=== PATIENT | female | born 1985 | race African-American/Black ===

== ENCOUNTER → 2019-02-20 | Outpatient (REF) | payer OTHER ==
[2019-02-20 15:19] LABS: BASO % 0.7 % (0.0-1.0); EOS % 0.7 % (0.0-3.0); HEMATOCRIT 44.8 % (36.0-47.0); HEMOGLOBIN 14.8 g/dl (12.0-15.5); LYMPH # 1.8 10^3/uL (1.5-4.5); LYMPH % 40.7 % (24.0-44.0); MEAN CORPUSCULAR HEMOGLOBIN 31.4 pg (27.0-33.0); MEAN CORPUSCULAR VOLUME 94.9 fl (80.0-96.0); MONO # 0.3 10^3/uL (0.0-0.8); MONO % 6.6 % (0.0-5.0); NEUTROPHILS # 2.3 10^3/uL (1.8-7.7); NEUTROPHILS % 51.1 % (36.0-66.0); PLATELET COUNT, AUTOMATED 255 10^3/uL (150-450); RED BLOOD COUNT 4.72 10^6/uL (4.00-5.40); WHITE BLOOD COUNT 4.4 10^3/uL (4.0-10.0)
[2019-02-20 15:35] LABS: ALT/SGPT 25 U/L (12-78); BLOOD UREA NITROGEN 9 MG/DL (7-18); CALCIUM LEVEL 8.9 MG/DL (8.5-10.1); CARBON DIOXIDE LEVEL 28 MEQ/L (21-32); CHLORIDE LEVEL 106 MEQ/L (98-107); GLOMERULAR FILTRATION RATE > 60.0 (>60); GLUCOSE, FASTING 78 MG/DL (70-100); POTASSIUM SERUM 4.3 MEQ/L (3.5-5.1); SODIUM LEVEL 140 MEQ/L (136-145)
[2019-02-20 15:36] LABS: ALBUMIN 4.1 GM/DL (3.2-5.2); BILIRUBIN,TOTAL 0.6 MG/DL (0.2-1.0); RHEUMATOID FACTOR QUANT 14.4 IU/ML (<15.0); THYROID STIMULATING HORMONE 0.806 uIU/ML (0.358-3.740); TOTAL PROTEIN 7.4 GM/DL (6.4-8.2)
[2019-02-20 15:37] LABS: FOLATE > 24.0 NG/ML
[2019-02-20 15:42] LABS: ERYTHROCYTE SEDIMENTATION RATE 2 mm/hr (0-20)
[2019-02-20 15:43] LABS: HEMOGLOBIN A1c 5.4 %
[2019-02-20 16:16] LABS: VITAMIN B12 LEVEL 1006 PG/ML
[2019-02-21 10:21] LABS: DRVV SCREEN 36.1 SEC
[2019-02-21 10:23] LABS: PTT LUPUS TYPE ANTICOAG SCREEN 0.9 (0-1.2)
[2019-02-22 10:04] LABS: ALBUMIN 4.68 GM/DL (3.29-5.55); ALBUMIN % 63.3 % (55.8-66.1); ALPHA-1-GLOBULIN % 3.3 % (2.9-4.9); ALPHA-1-GLOBULINS 0.24 GM/DL (0.17-0.41); ALPHA-2-GLOBULINS % 7.7 % (7.1-11.8); BETA-1-GLOBULINS % 5.5 % (4.7-7.2); BETA-2-GLOBULINS % 4.6 % (3.2-6.5); GAMMA GLOBULIN % 15.6 % (11.1-18.8)
[2019-02-22 10:05] LABS: ALPHA-2-GLOBULINS 0.57 GM/DL (0.42-0.99); BETA-1-GLOBULINS 0.41 GM/DL (0.28-0.60); BETA-2-GLOBULINS 0.34 GM/DL (0.19-0.55); GAMMA GLOBULINS 1.15 GM/DL (0.65-1.58)
[2019-02-23 00:10] LABS: ANCA-ATYPICAL <1:20 titer (Neg:<1:20); ANTI DOUBLE STRAND-DNA AB <1 IU/mL (0-9); ANTINUCLEAR ANTIBODIES DIRECT Negative (Negative); CYTOPLASMIC NEUTROP AB ANCA-C <1:20 titer (Neg:<1:20); Lyme Disease IgG/IgM Antibodie <0.91 ISR (0.00-0.90); Lyme Disease IgM Ab Quantitati <0.80 index (0.00-0.79); PERINUCLEAR AB ANCA-P <1:20 titer (Neg:<1:20); SJOGREN'S ANTI SS-A <0.2 AI (0.0-0.9); SJOGREN'S ANTI SS-B <0.2 AI (0.0-0.9)
[2019-02-24 00:08] LABS: VITAMIN E(GAMMA TOCOPHEROL) 1.5 mg/L (0.7-4.9)
== END ==
LOC: M LABNEURO 09:58
PROVIDERS: ATTEND Psychiatry & Neurology Neurology
DX: G62.9 Polyneuropathy, unspecified (principal)

== ENCOUNTER → 2019-09-29 | Outpatient (CLI) | payer OTHER ==
--- NOTE | 2019-10-02 07:41 | REP ---
Clinical: Seizures . Comparison: None . Findings: The ventricles, sulci, and cisterns are normal in position and appearance. Dominguez-white differentiation is maintained. No acute intracranial hemorrhage, mass/mass effect, pathology or trauma/injury. No evidence for acute infarction. No extra-axial fluid collection. Calvarium is intact. Paranasal sinuses and mastoid air cells are clear. Impression: Normal noncontrast head CT. No evidence for acute intracranial pathology or trauma/injury. Electronically Signed by Luis Chamberlain MD 09/29/2019 04:55 P
== END ==
LOC: M RAD 16:33
PROVIDERS: ATTEND Obstetrics & Gynecology
DX: G40.909 Epilepsy, unspecified, not intractable, without status epilepticus (principal)

== ENCOUNTER 2019-10-17 18:39 | Emergency (ER) | payer OTHER ==
[~2019-10-17] VITALS: Ht 170.2 cm; Wt 88.2 kg
[2019-10-17 18:40] VITALS: BP 144/66
[2019-10-17] MEDS ORDERED: PREN29CH2 PO (19:02)
[2019-10-17 19:12] LABS: BASO % 0.3 % (0.0-1.0); EOS # 0.1 10^3/uL (0.0-0.5); EOS % 1.1 % (0.0-3.0); HEMATOCRIT 38.9 % (36.0-47.0); HEMOGLOBIN 13.2 g/dl (12.0-15.5); LYMPH # 2.6 10^3/uL (1.5-5.0); LYMPH % 25.8 % (24.0-44.0); MEAN CORPUSCULAR HGB CONC 33.9 g/dl (32.0-36.5); MEAN CORPUSCULAR VOLUME 94.4 fl (80.0-96.0); MONO # 0.9 10^3/uL (0.0-0.8); MONO % 8.9 % (0.0-5.0); NEUTROPHILS # 6.3 10^3/uL (1.5-8.5); NEUTROPHILS % 63.1 % (36.0-66.0); PLATELET COUNT, AUTOMATED 233 10^3/uL (150-450); RED BLOOD COUNT 4.12 10^6/uL (4.00-5.40)
[2019-10-17] MEDS ORDERED: ONDANSETRON 4MG/2ML VIAL (J2405) IV ONE (19:45)
[2019-10-17 19:49] LABS: BLOOD UREA NITROGEN 6 MG/DL (7-18); CALCIUM LEVEL 9.3 MG/DL (8.5-10.1); CARBON DIOXIDE LEVEL 25 MEQ/L (21-32); CHLORIDE LEVEL 107 MEQ/L (98-107); CREATININE FOR GFR 0.68 MG/DL (0.55-1.30); GLOMERULAR FILTRATION RATE > 60.0 (>60); GLUCOSE, FASTING 81 MG/DL (70-100); HCG, SERUM QUANTITATIVE 8312 MIU/ML; POTASSIUM SERUM 4.1 MEQ/L (3.5-5.1); SODIUM LEVEL 139 MEQ/L (136-145)
--- NOTE | 2019-10-17 21:00 | REP ---
OB ULTRASOUND: Real-time sonographic evaluation of the gravid uterus is performed utilizing transabdominal technique. There is a single living intrauterine gestation, estimated gestational age 16 weeks 2 days based on LMP, EDC 03/31/2020. Today's measurements indicate appropriate growth. BPD 33 mm = 16 weeks 2 days, 40th percentile HC 129 mm = 16 weeks 4 days, 59th percentile AC 102 mm = 16 weeks 2 days, 48th percentile FL 24 mm = 17 weeks 1 day, 70th percentile HC/AC ratio 1.26, within normal range. Estimated weight 162 grams, 56th percentile. heart rate 157 beats per minute. Placenta is posterior. Edge of the placenta is difficult to visualize due to the lack of amniotic fluid and a uterine contraction. There may be placenta previa, with at least low lying placenta. There is no abruption. Placenta is grade 0. Cervix is closed and measures 3.9 cm in length. There is anhydramnios. Electronically Signed by Keith Dominguez MD 10/18/2019 03:44 P
== END 2019-10-17 20:11 | disposition admitted as inpatient to this hospital (09) ==
LOC: M ED 18:39
DX: O42.912 Preterm premature rupture of membranes, unspecified as to length of time between rupture and onset of labor, second trimester (principal); Z3A.16 16 weeks gestation of pregnancy

== ENCOUNTER 2019-10-17 20:17 | Outpatient (CLI) | payer OTHER ==
[~2019-10-17] VITALS: Ht 170.2 cm; Wt 90.0 kg
[~2019-10-17 20:17] MED LIST: PREN29CH2 PO
[2019-10-17] MEDS ORDERED: PROMETHAZINE INJ 25 MG/ML VIAL (J2550) IV PRN (21:00)
[2019-10-17] MEDS ORDERED: BUTORPHANOL 2 MG/ML INJ (J0595) IV PRN (21:00)
--- NOTE | 2019-10-17 21:26 | HPEPDOC ---
Obstetrical History & Physical General Date of Admission 17Oct2019 History of Present Illness 34 yo at 16+2 weeks gestation by LMP of [id number] c/w 10+0 week US on 28Aug2019 presented to the ER this evening after experiencing a large amount of leakage of fluid starting at ~1830 that has been continuous. She also endorses occasional cramping but nothing severe. She denies any bleeding. She also denies any fevers/chills, SOB, chest pain, dysuria, or n/v. She had an US down in the ER which demonstrated virtually no amniotic fluid but a viable IUP with a FHR of 157 bpm. Chief Complaint: LOF, pre-term Information Provided By: Patient Age: 34 : 10 Term: 4 Pre-term: 0 Abortions: 5 Livin Care Care: Good Care Dating Final EDC: March 31, 2020 Final EDC for Daily Update: March 31, 2020 Final EDC by: LMP (sure LMP of [id number]) LMP: Jun 25, 2019 1st Trimester Date: Aug 28, 2019 (10+0 wee US on 28Aug2019 c/w LMP dating) Antepartum Course Diagnos(e)s Grand Multiparity History of PPH in three prior deliveries Hx of seizure of in [address] head did not reveal concerning findings and BP was normal. Low concern for Pre E, though unclear story Overweight Past Medical History Past Obstetrical History : Past Obstetrical History: Multigravida ( X4, EAB X3 via D+C, SAB X2) Complications: Yes (History of PPH and seizure like episode after one delivery) HOME OFFICE REPRESENTATIVE History: No pertinent history Past Medical History Medical History Seizure like episode after delivery in 2009. Neurology workup unrevealing. Overweight. Surgical History: Dilatation and Curettage (D+C X3, bartholin's cyst excision?) Family History Significant Family History: No pertinent family hx Social History Marital Status: Family situation: Spouse/partner deployed Psychosocial History: No pertinent psych hx * Smoker: non-smoker Alcohol: Denies Drugs: denies Imunizations Tdap status: needs Influenza Status: needs Allergies Coded Allergies: No Known Allergies (Unverified , 10/17/19) Medications Scheduled No115/Iron/Folic Acid ( 19 Chewable Tablet) 1 Each Tab.chew, 1 TAB PO DAILY Physical Examination Physical Examination Chaperoned by L&D RN GENERAL: Alert and oriented times three. ABDOMEN: Gravid and non-tender to touch. No fundal tenderness. EXTREMITIES: No edema. PELVIC: Wet external genitalia. Speculum inserted into the vagina. Pooling of a large amount of clear fluid in the vagina. Positive nitrazine and positive ferning. Cervix closed to visual exam. Speculum removed. Laboratory Data Urine Culture: No Growth Pertinent Laboratoy Data Blood Type: O- RBC Antibody Screen: Negative HIV: Negative Hepatitis B: Negative Hepatitis C: Unknown Rapid Plasma Reagin: Nonreactive Rubella: Immune Varicella: Nonreactive Chlamydia/Gonorrhea: Negative Group B Streptococcus: Unknown Quad Screen Test: Unknown Cystic Fibrosis: Unknown Other Ultrasounds Formal US on 17Oct2019 There is a single living intrauterine gestation, estimated gestational age 16 weeks 2 days based on LMP, EDC 03/31/2020. Today's measurements indicate appropriate growth. BPD 33 mm = 16 weeks 2 days, 40th percentile HC 129 mm = 16 weeks 4 days, 59th percentile AC 102 mm = 16 weeks 2 days, 48th percentile FL 24 mm = 17 weeks 1 day, 70th percentile HC/AC ratio 1.26, within normal range. Estimated weight 162 grams, 56th percentile. heart rate 157 beats per minute. Placenta is posterior. Edge of the placenta is difficult to visualize due to the lack of amniotic fluid and a uterine contraction. There may be placenta previa, with at least low lying placenta. There is no abruption. Placenta is grade 0. Cervix is closed and measures 3.9 cm in length. There is anhydramnios. Assessment Heart Rate (FHR): 157 Tocometer Contractions: No Assessment/Plan Assessment 34 yo at 16+2 weeks gestation presented with previable, premature rupture of membranes. Plan Fetus still alive with documented heartbeat on formal US. Membrane rupture confirmed on exam and there is anhydramnios on US. Cervix closed on US and measured >3.5cm. Patient currently not in labor nor exhibiting any signs/symptoms of infection. I discussed the extremely poor prognosis of membrane rupture for Ms. Jaquez's fetus at this gestational age. I specifically mentioned the extremely high likelihood of her fetus not surviving, either pre or post delivery. She conveyed understanding. Given this poor prognosis, I offered her referral to a civilian facility for either D+E or IOL. The does NOT allow for termination in fetuses with a heartbeat unless the mother's life is threatened, which at this time is not. Ms. Jaquez declined this referral and desires to proceed with expectant management for as long as possible. Formal US demonstrated possible placenta previa, though this isn't definite. She currently has no bleeding. If fetus dies, and delivery becomes indicated (and allowed by federal law) IOL or D+E can either be safely accomplished at this gestational age according to most available data, though there may be an increased risk of the need for transfusion if fetus remains alive before delivery. However, if at any point Ms. Jaquez develops severe bleeding that is life threatening, she would require immediate delivery regardless of heartbeat status. Plan for inpatient observation at least overnight and ultimate expectant management per Ms. Jaquez's wishes. Will repeat CBC in the AM and monitor for signs/symptoms of infection. If concern for the development of maternal infection occurs, will move towards delivery. Will repeat US tomorrow as well. IV analgesia per patient request, and epidural analgesia if desired if she progresses into labor. Will order type and cross and a 2nd IV line due to her hemorrhage risk. All patient questions answered and Ms. Jaquez appears to understand the situation well. DO MARISELA Reyes CHRISTOPHER J. DO Oct 17, 2019 21:26
[2019-10-17 22:57] VITALS: BP 113/52
[2019-10-18 06:25] VITALS: BP 104/56
[2019-10-18 06:30] LABS: HEMATOCRIT 38.4 % (36.0-47.0); HEMOGLOBIN 12.8 g/dl (12.0-15.5); MEAN CORPUSCULAR HGB CONC 33.3 g/dl (32.0-36.5); PLATELET COUNT, AUTOMATED 195 10^3/uL (150-450); WHITE BLOOD COUNT 7.8 10^3/uL (4.0-10.0)
[2019-10-18 06:42] VITALS: BP 104/56
--- NOTE | 2019-10-18 10:01 | REP ---
LIMITED TRANSABDOMINAL AND TRANSLABIAL ULTRASOUND PERFORMED TO EVALUATE PLACENTAL LOCATION: There is a single living intrauterine gestation. The estimated gestational age is 16 weeks 3 days, EDC 03/31/2020. Cervix is closed and measures 3.9 cm in length. heart rate is 141 beats per minute. position is vertex. Placenta is posterior. Translabial images show no evidence of placenta previa. The inferior edge of the placenta appears to be approximately 1.6 cm from the internal cervical os. Anhydramnios is again noted. Electronically Signed by Keith Dominguez MD 10/18/2019 03:49 P
[2019-10-18 11:08] VITALS: BP 111/67
--- NOTE | 2019-10-19 13:14 | DSES ---
DATE OF ADMISSION: 10/17/2019 DATE OF DISCHARGE: 10/18/2019 This lady is a 34-year-old 10, para 4, abortio 5, who is at 16 weeks and 3 days with a last menstrual period (LMP) of 06/25/2019 and having an early ultrasound. She presented to the emergency room (ER) with ruptured membranes. Had an ultrasound, which confirmed spontaneous rupture of membranes with a heart at 16 weeks and 3 days. She has no contractions or vaginal bleeding. She was kept overnight for evaluation, and a repeat ultrasound was performed this morning and indicated that she has a live intrauterine (IUP) gestational 16.3. Estimated date of confinement (EDC) of 03/31/2020. Cervix is 3.9. heart is 141. She does not have a placenta previa. The placenta appears to be 1.6 cm from the internal os and again confirms that she has no amniotic fluid. Her hemoglobin is 12.8, hematocrit 38.4, platelets are 195. Her white count is 7.8. Her vital signs indicate she is afebrile with her highest temperature is 97.8, blood pressure is 111/67, pulse is 90, respirations are 16. We discussed with her the fact that she is still draining clear liquor. She is afebrile. We are unable to move forward with the plan of care because the heart is present. Options available to her are she could go to [place] for a dilatation evacuation if she is so inclined, or she can await spontaneous demise and/or fever. The patient has elected to wait; and so, instructions given were if she is cramping and bleeding with contractions to return immediately, taking her temperature every 6 hours while she is awake and if it is above 104, she is to return immediately. If she has foul discharge or lochia, she is to return immediately. She does have an appointment to see [facility] on Wednesday for heart evaluation. At this time, decision will be made regarding further ongoing plans. Both she and were available for discussion. We had a 40-minute discussion with the patient and asking appropriate questions. They expressed understanding of the plan of care. The patient was discharged with strict instructions as given plus taking her temperature. 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 The patient was discharged undelivered to followup in the office.
== END 2019-10-18 12:20 | disposition home or self-care (01) ==
LOC: M LDO 20:17 → M LDI 21:15 → UNDOADMIN 21:15 → M LDO 10-18 12:20
PROVIDERS: ATTEND Obstetrics & Gynecology
DX: O42.912 Preterm premature rupture of membranes, unspecified as to length of time between rupture and onset of labor, second trimester (principal); Z3A.16 16 weeks gestation of pregnancy
CPT/HCPCS: 36415; 76811; 76815; 80048; 84702; 85025; 85027; 86850; 86900; 86901; 86920; 96374; 99283; G0463; J2405

== ENCOUNTER 2019-10-20 11:49 | Emergency (ER) | payer OTHER ==
[2019-10-20] MEDS ORDERED: ACETAMINOPHEN 500 MG TAB PO ONE (12:30)
[2019-10-20 12:37] LABS: BASO % 0.3 % (0.0-1.0); EOS # 0.1 10^3/uL (0.0-0.5); EOS % 0.7 % (0.0-3.0); HEMATOCRIT 40.7 % (36.0-47.0); HEMOGLOBIN 13.3 g/dl (12.0-15.5); LYMPH # 1.9 10^3/uL (1.5-5.0); LYMPH % 20.6 % (24.0-44.0); MEAN CORPUSCULAR HGB CONC 32.7 g/dl (32.0-36.5); MEAN CORPUSCULAR VOLUME 98.1 fl (80.0-96.0); MONO # 0.7 10^3/uL (0.0-0.8); NEUTROPHILS # 6.3 10^3/uL (1.5-8.5); NEUTROPHILS % 69.7 % (36.0-66.0); PLATELET COUNT, AUTOMATED 222 10^3/uL (150-450); RED BLOOD COUNT 4.15 10^6/uL (4.00-5.40)
--- NOTE | 2019-10-20 12:56 | REP ---
Obstetric sonography: History: 16 weeks gestation leaking brown fluid. Comparison study October 18, 2019. Prior study showed anhydramnios and a low posterior placenta. Findings: A living single intrauterine gestation is seen. There is no observable amniotic fluid as previously noted. heart rate is recorded during the examination at 168 beats per minute. A low-lying posterior placenta is again identified. Breech lie. Translabial scanning was performed and there is no measurable cervix. Electronically Signed by Yonathan Delarosa MD 10/20/2019 12:47 P
[2019-10-20 13:22] LABS: BLOOD UREA NITROGEN 6 MG/DL (7-18); CALCIUM LEVEL 9.5 MG/DL (8.5-10.1); CARBON DIOXIDE LEVEL 23 MEQ/L (21-32); CHLORIDE LEVEL 109 MEQ/L (98-107); CREATININE FOR GFR 0.68 MG/DL (0.55-1.30); GLOMERULAR FILTRATION RATE > 60.0 (>60); GLUCOSE, FASTING 79 MG/DL (70-100); HCG, SERUM QUANTITATIVE 11268 MIU/ML; POTASSIUM SERUM 3.8 MEQ/L (3.5-5.1); SODIUM LEVEL 139 MEQ/L (136-145)
[2019-10-20] MEDS ORDERED: RHOGAM 300 MCG (1500 IU) INJ (J2790) IM ONE (16:00)
--- NOTE | 2019-10-20 16:29 | ED PDOC ---
Post-Departure Follow-Up [place] case report number [id number] emergency number to call [phone] spoke with Radha White who is processing the report VANESSA VILLELA PA-C Oct 20, 2019 16:29
[2019-10-20 16:36] VITALS: BP 125/65
--- NOTE | 2019-10-20 19:48 | IPNPDOC ---
Text Note Date of Service The patient was seen on 10/20/19. NOTE OB Consultation Note Summer is a 34yo with SIUP at 16w5d by lmp c/w early u/s with known PPROM at 16wk presenting to ER today with cramping/abdominal discomfort. She was previously found to have PPROM on 19Nov and admitted for observation/pain control overnight, but she did not progress into labor and desired to go home for expectant management with strict return precautions given. Diagnosis was made based on positive nitrazine and ferning as well as anyhydramnios on ultrasound with +FCA, cervical length at that time was 3.9cm. She notes she wasn't sure what to expect for when delivery is imminent, and she came in today thinking she may be about to deliver. She denies fevers/chills. Small vaginal spotting but no overt bleeding. History: Ob hx: x4, EAB via D&C x3, sab x2. PPH x3. 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 Comparison study October 18, 2019. Prior study showed anhydramnios and a low posterior placenta. Findings: A living single intrauterine gestation is seen. There is no observable amniotic fluid as previously noted. heart rate is recorded during the examination at 168 beats per minute. A low-lying posterior placenta is again identified. Breech lie. Translabial scanning was performed and there is no measurable cervix. Electronically Signed by Yonathan Delarosa MD 10/20/2019 12:47 P Assessment: Summer is a 34yo with SIUP at 16w5d by lmp c/w early u/s with known PPROM at 16wk having slow cervical change from 3.9cm length to no measurable cervix, but cervix still closed based on speculum exam performed by ER physician assistant store manager trainee today. There is still continued cardiac activity and anhydramnios by ultrasound today. No evidence of infection based on stable WBC count, afebrile, absence of foul smelling discharge and abdominal pain. She is hemodynamically stable with no significant bleeding. Plan: -patient desires to go home for continued expectant management (hospital admission was offered for observation/pain control, but patient declines) -I recommended patient receive Rhogam today based on scant spotting in light of maternal O neg blood type -Discussed with patient at length prognosis and expectations. She understands that in light of continued cardiac activity, we cannot proceed with augm entation of labor/IOL based on government regulations, and she is accepting of this. She understands that when she inevitably proceeds into labor, she needs to present to the hospital. She also understands that if she develops signs of infection such as fevers/chills, foul smelling vaginal discharge, abdominal(uterine) pain- she needs to present to the hospital. I confirmed that she has the phone number to contact the on-call physician if needed. -If at any point there is intrauterine demise, we could proceed with medical treatment. -I asked that social work assist with sending [employer] message for who is deployed to [facility]. MY RECOMMENDATION IS THAT RETURN HOME to assist patient given the potential medical complications related to her condition (potential for infection/sepsis as well as hemorrhage, etc). [employer] case report was filed: number [id number]. Phone number [phone]. Report filed by Radha White. -Return precautions discussed at length MD ANA Handy Fishbone I+O Kadie PEREZ I+O Laboratory Tests 10/20/19 11:55 Vital Signs Date Time Temp Pulse Resp B/P (MAP) Pulse Ox O2 Delivery O2 Flow Rate FiO2 10/20/19 16:36 96.2 82 18 125/65 (85) 100 Room Air Liliane Garay MD Oct 20, 2019 19:35
== END 2019-10-20 16:38 | disposition home or self-care (01) ==
LOC: M ED 11:49
DX: O42.112 Preterm premature rupture of membranes, onset of labor more than 24 hours following rupture, second trimester (principal); Z3A.16 16 weeks gestation of pregnancy; Z87.59 Personal history of other complications of pregnancy, childbirth and the puerperium; Z87.448 Personal history of other diseases of urinary system; Z79.899 Other long term (current) drug therapy
CPT/HCPCS: 76815; 80048; 81001; 84702; 85025; 86850; 86900; 86901; 87210; 96372; 99283; J2790

== ENCOUNTER 2019-10-23 07:05 | Inpatient (IN) | payer OTHER ==
[~2019-10-23] VITALS: Ht 170.2 cm; Wt 89.0 kg
[2019-10-23] VITALS (9 sets, daily range): BP systolic 103–130; BP diastolic 57–80
[2019-10-23] MEDS ORDERED: LACTATED RINGER'S 1000 ML IV STA (07:51)
[2019-10-23] MEDS ORDERED: LR 1,000 ML IV SCH ×2 (07:51→14:45)
--- NOTE | 2019-10-23 07:55 | HPEPDOC ---
Obstetrical History & Physical General Date of Admission Oct 23, 2019 at 07:05 History of Present Illness 34 yo at 17+2 weeks gestation with known previable premature rupture of membranes presented to L&D in second stage labor and delivered her shortly after arrival. See delivery note for details. Chief Complaint: Rupture of membranes Information Provided By: Patient Age: 34 : 10 Term: 4 Pre-term: 0 Abortions: 5 Livin Care Care: Good Care Dating Final EDC: March 31, 2020 Final EDC for Daily Update: March 31, 2020 Antepartum Course Diagnos(e)s Grand multiparity Apparent seisure after last though workup was not revealing Overweight RH negative (received rhoam on 20Oct2019) Past Medical History Past Obstetrical History : Past Obstetrical History: Multigravida (Term X4, EAB X3 via D+C, SAB X2) NUT GRINDER History: Spontaneous , Theraputic Past Medical History Medical History Overweight Seizure episode after last delivery? Surgical History: Dilatation and Curettage (D+C X3) Family History Significant Family History: No pertinent family hx Social History Marital Status: Family situation: Spouse/partner deployed Psychosocial History: No pertinent psych hx * Smoker: non-smoker Alcohol: Denies Imunizations Tdap status: needs Influenza Status: needs Allergies Coded Allergies: No Known Allergies (Unverified , 10/17/19) Medications Scheduled No115/Iron/Folic Acid ( 19 Chewable Tablet) 1 Each Tab.chew, 1 TAB PO DAILY Physical Examination Physical Examination Chaperoned by L&D RN GENERAL: Alert and oriented times three. ABDOMEN: Gravid and non-tender to touch. EXTREMITIES: No edema. PELVIC: Feet of fetus hanging out of vagina upon arrival to L&D Laboratory Data Urine Culture: No Growth Pertinent Laboratoy Data Blood Type: O- RBC Antibody Screen: Negative HIV: Negative Hepatitis B: Negative Hepatitis C: Unknown Rapid Plasma Reagin: Nonreactive Rubella: Immune Varicella: Nonreactive Chlamydia/Gonorrhea: Negative Group B Streptococcus: Unknown Quad Screen Test: Unknown Cystic Fibrosis: Unknown Other Ultrasounds Ultrasounds on 17Oct2019 and 20Oct2019 demonstrated viable fetus with anhydramnios. Steroid Therapy Steroid Therapy: No Vaginal Examination Dilation: 5 cm Effacement: 90% Station: +5 Cervical Consistency: Soft Cervical Position: Anterior Presentation: Breech presentation Tocometer Contractions: Yes Frequency: irregular Assessment/Plan Assessment 34 yo at 17+1 weeks gestation presented to L&D in 2nd stage of labor and delivered her stillborn fetus. Plan Fetus delivered. Placental still in place. IV fluids. Type and screen. PRN pain and nausea medication. Cytotec 1000mcg placed rectally to help facilitate passage of the placenta. I discussed with Summer that if her placenta doesn't deliver she may require dilation and curettage. She has remained stable after delivery of her fetus with minimal bleeding. Report given to oncoming embroidery specialist Dr. Gregg. All patient questions answered. DO MARISELA Reyes CHRISTOPHER J. DO Oct 23, 2019 07:55
[2019-10-23] MEDS ORDERED: ONDANSETRON 4MG/2ML VIAL (J2405) IV PRN ×2 (08:00→14:45)
[2019-10-23] MEDS ORDERED: BUTORPHANOL 2 MG/ML INJ (J0595) IV PRN (08:00)
--- NOTE | 2019-10-23 08:16 | DNPDOC ---
[facility] Delivery Note Delivery Note DATE OF DELIVERY: 23Oct2019 PREDELIVERY DIAGNOSIS: 17+1 weeks gestation and previable premature rupture of membranes and then labor POST DELIVERY DIAGNOSIS: Stillborn delivery (, i.e, <20 weeks gestation) PROCEDURE: Spontaneous vaginal delivery MUTUAL FUND SALES AGENT: Dr. York ANESTHESIA: None ESTIMATED BLOOD LOSS: 20 mL. FINDINGS: Male infant, no gross anatomic abnormalities. Placenta still in place. DELIVERY SUMMARY: Summer is a 34 yo at 17+1 weeks gestation being followed closely with known previable, premature rupture of membranes. She presented to L&D in labor with the legs of her fetus protruding from her vagina. She was taken to a delivery room and placed in the lithotomy position. She had an uncontrollable urge to push. Over three sets of pushes of her stillborn fetus delivered in footling breech position. Legs delivered, followed by shoulders, arms, and head with gentle traction and without difficulty. Fetus had no heartbeat or signs of life after delivery. The umbilical cord was clamped and cut. The fetus was inspected and found to have no gross anatomic abnormalities. Fetus was male. Clamp was left on umbilical cord protruding from vagina. Placenta did not deliver spontaneously. 1000mcg MA cytotec was placed. EBL with delivery of fetus was 20ml. Fetus was then wrapped in towels and placed on delivery table. There was no bleeding or hemorrhage with the placenta still in place. Ms. Jaquez was stable, though grieving appropriately when I left the room. L&D RN providing emotional support. Report given to oncoming pump technician Dr. Gregg. DO MARISELA Reyes CHRISTOPHER J. DO Oct 23, 2019 08:16
[2019-10-23 09:03] LABS: HEMATOCRIT 41.8 % (36.0-47.0); HEMOGLOBIN 13.9 g/dl (12.0-15.5); MEAN CORPUSCULAR HEMOGLOBIN 31.9 pg (27.0-33.0); MEAN CORPUSCULAR HGB CONC 33.3 g/dl (32.0-36.5); MEAN CORPUSCULAR VOLUME 95.9 fl (80.0-96.0); PLATELET COUNT, AUTOMATED 221 10^3/uL (150-450); RED BLOOD COUNT 4.36 10^6/uL (4.00-5.40); WHITE BLOOD COUNT 7.3 10^3/uL (4.0-10.0)
[2019-10-23] MEDS ORDERED: miSOPROStol 200 MCG TAB (S0191) PR ONE (09:45)
[2019-10-23] MEDS ORDERED: dexameTHASONE 4 MG/ML 1ML VIAL (J1100) As Ordered ONE (12:45)
[2019-10-23] MEDS ORDERED: fentaNYL 250 MCG/5 ML INJECTION (J3010) As Ordered ONE (12:45)
[2019-10-23] MEDS ORDERED: MIDAZOLAM INJ 2 MG/2 ML VIAL (J2250) As Ordered ONE (12:45)
[2019-10-23] MEDS ORDERED: KETOROLAC 60 MG/2 ML VIAL (J1885) As Ordered ONE (12:45)
[2019-10-23] MEDS ORDERED: ROCURONIUM BROMIDE 50 MG/5 ML VIAL As Ordered ONE (12:45)
[2019-10-23] MEDS ORDERED: LIDOCAINE 2% INJ 100 MG/5 ML SDV (FOR ANES.) As Ordered ONE (12:45)
[2019-10-23] MEDS ORDERED: ONDANSETRON 4MG/2ML VIAL (J2405) As Ordered ONE (12:45)
[2019-10-23] MEDS ORDERED: PROPOFOL 200 MG/20 ML VIAL As Ordered ONE (12:45)
[2019-10-23] MEDS ORDERED: PIPERACILLIN/TAZOBACTAM SOD 3.375 GM in D5W MINI-BAG PLUS 50 ML IV ONE (13:00)
[2019-10-23] MEDS ORDERED: miSOPROStol 200 MCG TAB (S0191) As Ordered ONE (13:57)
[2019-10-23] MEDS ORDERED: ACETAMINOPHEN 650 MG SUPP As Ordered ONE (13:57)
[2019-10-23] MEDS ORDERED: OXYTOCIN INJ 10 UNITS/ML VIAL (J2590) As Ordered ONE (14:04)
[2019-10-23] MEDS ORDERED: RHOGAM 300 MCG (1500 IU) INJ (J2790) IM SCH (14:15)
[2019-10-23] MEDS ORDERED: IBUPROFEN 600 MG TAB PO PRN (14:15)
[2019-10-23] MEDS ORDERED: METHYLERGONOVINE MALEATE 0.2 MG TAB PO PRN (14:15)
[2019-10-23] MEDS ORDERED: MEASLES,MUMPS,RUBELLA VACCINE INJ (MMR-II) (90707) SC SCH (14:15)
[2019-10-23] MEDS ORDERED: ACETAMINOPHEN TAB 650MG DOSE (2X325MG) PO PRN (14:15)
[2019-10-23] MEDS ORDERED: ACETAMINOPHEN 500 MG TAB PO PRN (14:15)
[2019-10-23] MEDS ORDERED: DIBUCAINE 1% OINTMENT 30GM TOP PRN (14:15)
[2019-10-23] MEDS ORDERED: IBUPROFEN 800 MG TAB PO PRN (14:15)
[2019-10-23] MEDS ORDERED: ANUSOL HC CREAM 30GM TOP PRN (14:15)
[2019-10-23] MEDS ORDERED: PERCOCET 5MG/325MG TAB PO PRN (14:45)
[2019-10-23] MEDS ORDERED: fentaNYL 100 MCG/2 ML INJECTION (J3010) IV PRN (14:45)
[2019-10-23] MEDS ORDERED: HYDROMORPHONE HCL 0.5 MG/ 0.5 ML SYRINGE (J1170 PER 1) IV PRN (14:45)
[2019-10-23] MEDS ORDERED: IBUP80TA PO (20:36)
--- NOTE | 2019-10-23 20:58 | IPN ---
DATE: 10/23/2019 34-year-old 10, para 4, abortus 5, who is 17 weeks now with a history of LMP of 06/25/2019 having had an early ultrasound. She presented initially to the emergency with ruptured membranes confirmed by ultrasound and the heart are 16 and 3. She had no contractions or vaginal bleeding. After a 24 hour stay and no evidence of change, no evidence of fever, still having a heart by ultrasound and documented cervix appeared to be long and closed and the placenta was not close to the internal os, she was allowed to go home and to followup if she started bleeding, cramping or miscarrying. She came in this morning by ambulance brittany and having some vaginal bleeding and she had a spontaneous delivery of a previable premature rupture of membranes as a double footling breech through the vagina. The fetus was stillborn in the breech position. Fetus was a male. The cord was clamped, there were three vessels there, and she was given 1000 mg of Cytotec with minimal bleeding. We now are awaiting delivery hopefully spontaneously of the placenta. Her vital signs: Presently her blood pressure is 114/80, respirations 18, pulse 94, temperature is 99.9. She originally came in with a temperature of 99.1. Her labs indicate her white count is 7.3, hemoglobin 13.9, hematocrit 41.8 and platelets are 221. We evaluated her at the present time. The cord seems to come down through the vagina protruding about 6-8 inches. Digital examination: The cervix is still closed, we can feel just above the cervix there is obviously placenta present. Our plan of care is to wait probably another hour to see if with spontaneous pushing she can deliver this placenta. We have an IV running for hemorrhage risk too and presently the patient is just starting to feel some cramps and contractions, however she is not feeling she has to push at the present time. We reviewed care. We answered questions regarding autopsy, regarding disposal by the hospital. We are awaiting the clergy to come in for baptismal purposes and the patient has a good support system at the present time.
--- NOTE | 2019-10-23 21:03 | IPN ---
DATE: 10/23/2019 This lady was in the midst of having a spontaneous miscarriage at 16 weeks after documenting a nonviable and had spontaneous rupture of membranes a week ago. She felt like she had some pressure in the vagina. we digitally examined her, had her push, she was unable to push. The cord is still intact. The placenta is still intact in the uterus. There is approximately 30 mL of bleeding. Her bladder is quite full. We are going to Salas catheter the patient, reassess her in an hour. If there is no movement of the placenta spontaneously we will take her to the OR for a dilatation and curettage of retained products of conception.
--- NOTE | 2019-10-23 21:10 | IPN ---
DATE: 10/23/2019 This lady was admitted with spontaneous rupture of membranes several days ago, nonviable, 16-week gestation, was delivering a double footling breech presentation. Placenta was intact and remained in the uterus despite Cytotec. No vaginal bleeding or discharge. Several attempts at evacuation by direct speculum examination did not produce a placenta. We are now 5 hours since the last Cytotec and there has been no evidence of bleeding, contractions or descent of the placenta. We discussed the risks and benefits of UA suction curettage with the patient including hemorrhage, infection, perforation, , reoperation. We also discussed the use of antibiotics prophylactically to reduce the incidence of sepsis. The patient expressed understanding of same. IV is running. Salas catheter in place and Zosyn was ordered as a covering antibiotic. We now await the operating room in order to continue with the plan of care. The patient expressed understanding. 20-minute discussion. All questions were answered.
--- NOTE | 2019-10-24 18:47 | DSES ---
DATE OF ADMISSION: 10/23/2019 DATE OF DISCHARGE: 10/23/2019 This lady is 34-year-old 10, para 4, abortio 5 who was at 16 weeks and 3 days by last period of 06/25/2019, having an early ultrasound. She presented to the emergency department (ED) with ruptured membranes. Ultrasound confirmed spontaneous rupture of membranes, cardiac activity. No vaginal bleeding or loss at 16 weeks and 3 days. Repeat evaluation in the morning indicated an intrauterine (IUP) which had 16 weeks 3 days. Estimated date of confinement (EDC) was 03/31/2020. Cervix is 3.9 cm. heart rate 141. Placenta was 1.6 cm from the internal os. Her vital signs were stable. Her chemistry was normal. She was afebrile. She had a discussion regarding going home and waiting for either spontaneous resolution by labor, contractions, vaginal bleeding with the risk factors of fever, infection, or foul discharge, or she could go to [place] for a dilatation and evacuation (D and E) if she was so inclined. She elected to go home and be seen in the [facility] 24-48 hours afterward in order to monitor her situation. She returned October 20 through the emergency department, and now she was 16 weeks and 5 days with known premature rupture of membranes (PPROM), and she came with cramping and abdominal discomfort. She was given precautions. She came back because she was confused as to what to expect when delivery was imminent and thinking that she may be delivering at this time. She had no fever or chills. She had some small vaginal spotting. She had an ultrasound which showed she had an hydramnios, and she had a cardiac activity at 168 beats per minute. At this time there was no measurable cervix. The recommendation was that she return home, and her was recommended to be returned from [facility]. Reports were filed with Radha White. The patient subsequently came back on October 23.. This time she was actively in labor, and she delivered a stillborn fetus in the breech presentation, 184 grams or 6.5 ounces. Head circumference was 5.5 or 14.5 cm. Length was 9 inches, or 23 cm. [place]-rump was 5-3/4 inches or 14.5 cm. Noted to be a male fetus with no abnormalities noted. She had minimal bleeding. She was given Cytotec, and we awaited the anticipation of spontaneous delivery of the placenta. Despite the fact of being cautionary, she was not able to pass the placenta spontaneously. Therefore, she was taken to the operating theater. After adequate antibiotic coverage, a dilatation and curettage was performed. The placenta was complete with membranes and cord and was sent to pathology under separate cover. She was kept in observation and on the floor for 4 hours. Bleeding had virtually subsided. She had minimal pain, was taking some Tylenol and ibuprofen, and requested to go home to be with her other children. On physical examination on discharge, her vital signs were blood pressure 110/75, respirations 18, pulse 90, temperature 98.2. Her lab values were 13.9, hematocrit 41.8, and platelets were 221. We discussed phlebitis, cystitis, mastitis, metritis, cellulitis, diet, excise pain management, and perineal and breast care. We discussed the use of thermometer in order to monitor her temperature. Foul lochia, increased bleeding, to contact her provider immediately. Otherwise, she was discharged with ibuprofen and Colace to followup in 2 weeks' time for a checkup. In summary, we have a 16-week 3-day spontaneous rupture of membranes, nonviable delivery of a male fetus with a UA suction dilatation and curettage for the retained placenta. The patient expressed understanding of the condition and what to expect, and she was given her medications upon discharge. A 40-minute discussion. All questions were answered.
--- NOTE | 2019-10-24 22:17 | RO ---
DATE OF PROCEDURE: 10/23/2019 PREOPERATIVE DIAGNOSIS: Retained placenta, 16 weeks nonviable . POSTOPERATIVE DIAGNOSIS: Retained placenta, 16 weeks nonviable . OPERATION PROPOSED: Suction curettage. OPERATION PERFORMED: Suction curettage. SURGEON: Arias Gregg MD COW WASHER: ANESTHESIA: General. ESTIMATED BLOOD LOSS: 100 mL DESCRIPTION OF PROCEDURE: After adequate time-out, prepped and draped in lithotomy position, Salas catheter was already in the bladder draining clear urine. Antibiotics appropriately in place. Weighted speculum in the vagina. Ring forcep on the anterior lip of the cervix. Cord was visualized. We put a sponge forceps into the uterus that was already dilated to at least a Maria E 16. The placenta came out completely with membranes and cord intact. It was sent off to pathology under separate cover. Uterus contracted well under Pitocin. We suctioned out the uterus with a 16 suction dilator. No evidence of real active bleeding. The uterus replaced in anatomical position, acetaminophen suppository 1300 mg per rectum. Toradol was given IV for pain management and the patient was sent back to recovery in good condition.
== END 2019-10-23 22:15 | disposition home or self-care (01) | DRG 764 ==
LOC: M LDI 07:05 → M OBS 19:17
PROVIDERS: ADMIT Obstetrics & Gynecology; ATTEND Obstetrics & Gynecology
PROC: 10D17ZZ Extraction of Products of Conception, Retained, Via Natural or Artificial Opening (ICD-10-PCS; 2019-10-23)
PROC: 10E0XZZ Delivery of Products of Conception, External Approach (ICD-10-PCS; principal; 2019-10-23 12:32)
DX: O42.012 Preterm premature rupture of membranes, onset of labor within 24 hours of rupture, second trimester (principal); Z37.1 Single stillbirth; Z3A.17 17 weeks gestation of pregnancy; O73.0 Retained placenta without hemorrhage

== ENCOUNTER → 2021-04-14 | Outpatient (CLI) | payer OTHER ==
[~2021-04-14] MED LIST changes: +IBUP80TA PO
[2021-04-14 12:17] LABS: HEMATOCRIT 41.3 % (36.0-47.0); HEMOGLOBIN 13.7 g/dl (12.0-15.5); MEAN CORPUSCULAR HEMOGLOBIN 32.4 pg (27.0-33.0); MEAN CORPUSCULAR HGB CONC 33.2 g/dl (32.0-36.5); MEAN CORPUSCULAR VOLUME 97.6 fl (80.0-96.0); PLATELET COUNT, AUTOMATED 194 10^3/uL (150-450); RED BLOOD COUNT 4.23 10^6/uL (4.00-5.40)
[2021-04-15 06:50] LABS: WHITE BLOOD COUNT 9.1 10^3/uL (4.0-10.0)
== END ==
LOC: M LAB 10:20
PROVIDERS: ATTEND Obstetrics & Gynecology
DX: Z34.82 Encounter for supervision of other normal pregnancy, second trimester (principal)
CPT/HCPCS: 36415; 82950; 85027; 86850; 86901; J2790

== ENCOUNTER 2021-06-05 16:51 | Outpatient (CLI) | payer OTHER ==
[~2021-06-05] VITALS: Ht 170.2 cm; Wt 103.3 kg
[2021-06-05 17:20] VITALS: BP 124/64
--- NOTE | 2021-06-05 18:43 | IPNPDOC ---
Text Note Date of Service The patient was seen on 06/05/21. NOTE 35 yo at 34 5/7 weeks gestation presents with sharp, stabbing pain in the vaginal area. She has vaginal pressure. no bleeding. Pain with walking. She has a cerclage in place. H/o gestational diabetes. pt of [facility], Dr. Agarwal. O: AVSS NAD Abd: NT, soft +pubic bone tenderness to palpation SVE: cx L/C//P, stitch intact FHT: cat. I toco: none ext: NT A/P 35 yo at 34+ weeks with pubic joint diastasis D/C home rest Tylenol Heating pad F-u MELINDA Pickering MD Jun 05, 2021 18:42
== END 2021-06-05 18:36 | disposition home or self-care (01) ==
LOC: M LDO 16:51
PROVIDERS: ATTEND Specialist
DX: O26.893 Other specified pregnancy related conditions, third trimester (principal); R10.2 Pelvic and perineal pain; Z3A.34 34 weeks gestation of pregnancy; Z87.59 Personal history of other complications of pregnancy, childbirth and the puerperium
CPT/HCPCS: 59025; G0378; G0463

== ENCOUNTER → 2021-06-21 | Outpatient (CLI) | payer OTHER | LOC: M LABSMTC 10:28 | PROVIDERS: ATTEND Anesthesiology | DX: Z01.812 Encounter for preprocedural laboratory examination (principal); Z20.822 Contact with and (suspected) exposure to COVID-19 ==

== ENCOUNTER → 2021-06-25 | Day surgery (SDC) | payer OTHER ==
[~2021-06-25] VITALS: Ht 170.2 cm; Wt 85.6 kg
[~2021-06-25] MED LIST changes: +LIDOCAINE 1% SDV 30ML VIAL As Ordered ONE; +LIDOCAINE 2% 100MG/5ML SDV (FOR ANES.) As Ordered ONE; +propofoL 200 MG/20 ML VIAL As Ordered ONE
[2021-06-25 14:10] VITALS: BP 112/57
[2021-06-25 14:18] VITALS: BP 114/64
[2021-06-25 14:34] VITALS: BP 116/58
--- NOTE | 2021-06-25 14:36 | RO ---
OPERATIVE NOTE DATE OF OPERATION: 06/25/2021 Summer is a 35-year-old female who is approximately 37 weeks with a cerclage in place for a progressively shortened cervix. After counseling, a decision was made to remove. The patient had an embedded cerclage found in the office. She was then sent to the hospital for removal. PREOPERATIVE DIAGNOSIS: Embedded cerclage at 37 weeks. POSTOPERATIVE DIAGNOSIS: Embedded cerclage at 37 weeks. PROCEDURE: Removal of cervical cerclage. SURGEON: Kimani Agarwal DO SURGICAL INSTRUMENT TECHNICIAN: ANESTHESIA: Propofol. COMPLICATIONS: None. ESTIMATED BLOOD LOSS: Less than 5 mL The heart rate prior to procedure was 140-150, post-procedure about the same. The patient will be sent to labor and delivery for following monitoring. DESCRIPTION OF PROCEDURE: After obtaining informed consent, the patient was taken to the operating room where anesthetic was found to be adequate. She was then draped and prepped in the usual fashion in the dorsal lithotomy position. At this point, a weighted speculum was placed. Using a Nicolas retractor, the cervix was inspected. The cerclage was found and was embedded into the cervical stump. Using a pickup, the suture was held on tension and the cerclage was then cut way. Good hemostasis noted, no evidence of any bleeding, no evidence of any leakage of fluid. Vagina copiously irrigated with normal saline and suctioned out. The patient tolerated the procedure well. She was then transferred to recovery room in stable condition. [facility]
[2021-06-25 14:53] VITALS: BP 122/64
[2021-06-25 15:25] VITALS: BP 128/68
== END | disposition home or self-care (01) ==
LOC: M SDC 12:16
PROVIDERS: ATTEND Obstetrics & Gynecology
DX: O34.33 Maternal care for cervical incompetence, third trimester (principal); Z3A.37 37 weeks gestation of pregnancy; Z91.013 Allergy to seafood

== ENCOUNTER 2021-07-08 18:41 | Outpatient (CLI) | payer OTHER ==
[~2021-07-08] VITALS: Ht 170.2 cm; Wt 104.0 kg
[~2021-07-08 18:41] MED LIST changes: -LIDOCAINE 1% SDV 30ML VIAL As Ordered ONE; -LIDOCAINE 2% 100MG/5ML SDV (FOR ANES.) As Ordered ONE; -propofoL 200 MG/20 ML VIAL As Ordered ONE
[2021-07-08 18:56] VITALS: BP 149/79
[2021-07-08] MEDS ORDERED: HOME MED LIST COMPLETE! XX SCH (19:05)
--- NOTE | 2021-07-08 21:40 | IPNPDOC ---
Text Note Date of Service The patient was seen on 07/08/21. NOTE Labor and Delivery Triage Note: S: 35-year-old G8, P4 at 39 weeks with complaints of leakage of fluid. She reports small amount of clear fluid earlier. No other complaints of leakage. Denies any vaginal bleeding or regular painful contractions. Reports active movement. O: vss, AF no ctx Cat 1 tracing Gen: well appearing, NAD Abd: gravid, soft, nttp cx: Long and closed TAUS: Active fetus, cephalic, LYDIA of 17 cm. Patient declines speculum exam. Nitrazine was negative. A/P: 35-year-old G8, P4 at 39 weeks without rupture of membrane reassuring status -home with laborprecautions and FKCs. -f/u at next OB appt German Stokes MD VS,Kadie, I+O VSKadie, I+O Vital Signs Date Time Temp Pulse Resp B/P (MAP) Pulse Ox O2 Delivery O2 Flow Rate FiO2 07/08/21 18:56 99.0 103 18 149/79 (102) GERMAN STOKES MD. Jul 08, 2021 21:40
== END 2021-07-08 21:30 | disposition home or self-care (01) ==
LOC: M LDO 18:41
PROVIDERS: ATTEND Obstetrics & Gynecology
DX: Z03.79 Encounter for other suspected maternal and fetal conditions ruled out (principal); Z3A.39 39 weeks gestation of pregnancy
CPT/HCPCS: 59025; G0378; G0463

== ENCOUNTER 2021-07-16 22:09 | Inpatient (IN) | payer OTHER ==
[~2021-07-16] VITALS: Ht 170.2 cm; Wt 102.5 kg
[2021-07-16] MEDS ORDERED: PENICILLIN G POTASSIUM IV 5 MU in D5W MINI-BAG PLUS 100 ML IV STA (22:13)
[2021-07-16] MEDS ORDERED: LACTATED RINGER'S 1000 ML IV STA (22:13)
[2021-07-16] MEDS ORDERED: LIDOCAINE 1% MDV 20ML VIAL INFIL PRN (22:15)
[2021-07-16] MEDS ORDERED: LR 1,000 ML IV SCH (22:15)
[2021-07-16] MEDS ORDERED: OXYTOCIN INJ 10 UNITS/ML VIAL (J2590) IM PRN (22:15)
[2021-07-16] MEDS ORDERED: OXYTOCIN DRIP 30 UNITS in IV 1 EA IV PRN (22:15)
[2021-07-16] MEDS ORDERED: METHYLERGONOVINE MALEATE 0.2 MG/ML VIAL (J2210) IM PRN (22:15)
[2021-07-16 22:51] LABS: HEMATOCRIT 46.6 % (36.0-47.0); HEMOGLOBIN 15.8 g/dl (12.0-15.5); MEAN CORPUSCULAR HEMOGLOBIN 32.1 pg (27.0-33.0); MEAN CORPUSCULAR HGB CONC 33.9 g/dl (32.0-36.5); MEAN CORPUSCULAR VOLUME 94.7 fl (80.0-96.0); PLATELET COUNT, AUTOMATED 155 10^3/uL (150-450); RED BLOOD COUNT 4.92 10^6/uL (4.00-5.40); WHITE BLOOD COUNT 6.6 10^3/uL (4.0-10.0)
[2021-07-16] MEDS ORDERED: MAGNESIUM SULFATE 4% INJ 20GM/500ML (40MG/ML) As Ordered ONE (23:16)
[2021-07-16] MEDS ORDERED: diazePAM 10MG/2ML SYRINGE (J3360 PER 5MG) As Ordered ONE (23:16)
[2021-07-16] MEDS ORDERED: MAGNESIUM *L&D* 4GM/100ML BAG (40MG/ML) IV ONE (23:30)
[2021-07-16] MEDS ORDERED: MAG Sulf (OBGYN) 20GM/500ML 20,000 MG in IV 1 EA IV SCH (23:35)
[2021-07-16] MEDS ORDERED: diazePAM 10MG/2ML SYRINGE (J3360 PER 5MG) IV ONE (23:50)
[2021-07-17] VITALS (27 sets, daily range): BP systolic 122–153; BP diastolic 57–91
[2021-07-17 00:03] LABS: ALT/SGPT 22 U/L (12-78); BILIRUBIN,TOTAL 0.6 MG/DL (0.2-1.0); CREATININE FOR GFR 0.81 MG/DL (0.55-1.30); GLOMERULAR FILTRATION RATE > 60.0 (>60); LDH LACTATE DEHYDROGENASE 332 U/L (84-246); URIC ACID 4.1 MG/DL (2.6-6.0)
[2021-07-17 00:05] LABS: APPEARANCE, URINE CLEAR (CLEAR); BACTERIA, URINE AUTO NEGATIVE (NEGATIVE); BILIRUBIN, URINE AUTO NEGATIVE (NEGATIVE); BLOOD, URINE BLOOD 1+ (NEGATIVE); COLOR, URINE STRAW (YELLOW); GLUCOSE, URINE (UA) AUTO NEGATIVE (NEGATIVE); KETONE, URINE AUTO NEGATIVE (NEGATIVE); LEUKOCYTE ESTERASE, URINE AUTO NEGATIVE (NEGATIVE); MUCUS, URINE SMALL (NEGATIVE); NITRITE, URINE AUTO NEGATIVE (NEGATIVE); PROTEIN, URINE AUTO 1+ mg/dL (NEGATIVE); RBC, URINE AUTO 9 /HPF (0-3); SPECIFIC GRAVITY URINE AUTO 1.006 (1.002-1.035); SQUAMOUS EPITHELIAL CELL UR AU 0 /HPF (0-6); UROBILINOGEN, URINE AUTO 0.2 mg/dL (0.0-2.0); WBC, URINE AUTO 2 /HPF (0-3)
[2021-07-17] MEDS ORDERED: FENTANYL 2MCG/ML ROPIVACAINE 0.2% IN 0.9% NACL 100ML IVBAG As Ordered ONE (00:14)
[2021-07-17 00:16] LABS: CREATININE,RANDOM URINE 43.3 MG/DL; TOTAL PROTEIN,RANDOM URINE 26.1 MG/DL (0.0-12.0)
[2021-07-17 01:10] LABS: ALBUMIN 3.2 GM/DL (3.2-5.2); BLOOD UREA NITROGEN 8 MG/DL (7-18); CALCIUM LEVEL 8.8 MG/DL (8.5-10.1); CARBON DIOXIDE LEVEL 21 MEQ/L (21-32); CHLORIDE LEVEL 109 MEQ/L (98-107); GLUCOSE, FASTING 68 MG/DL (70-100); POTASSIUM SERUM 4.5 MEQ/L (3.5-5.1); SODIUM LEVEL 138 MEQ/L (136-145); TOTAL PROTEIN 6.6 GM/DL (6.4-8.2)
[2021-07-17] MEDS ORDERED: LACTATED RINGER'S 1000 ML IV PRN (01:40)
[2021-07-17] MEDS ORDERED: EPIDURAL COMMENT XX SCH (01:40)
[2021-07-17] MEDS ORDERED: NALOXONE INJ 0.4MG/1ML VIAL (J2310 PER 1MG) IV PRN (01:40)
[2021-07-17] MEDS ORDERED: diphenhydrAMINE 50MG/ML VIAL (J1200) IV PRN (01:40)
[2021-07-17] MEDS ORDERED: ePHEDrine SULFATE 25 MG/5 ML(5MG/ML) SYRINGE IV PRN (01:40)
[2021-07-17] MEDS ORDERED: REFRIGERATOR IV KEYS XX PRN (01:40)
[2021-07-17] MEDS ORDERED: FENTANYL/ROPIVACAINE/NACL BAG 100 ML EPIDURAL SCH (01:40)
[2021-07-17] MEDS ORDERED: ONDANSETRON 4MG/2ML VIAL IV PRN (01:40)
[2021-07-17] MEDS ORDERED: EPIDURAL/PCA KEYS XX PRN (01:40)
[2021-07-17] MEDS ORDERED: OXYTOCIN 30 UNITS IN 0.9% NaCl 500ML IV BAG (J2590) As Ordered ONE ×2 (02:08→06:54)
--- NOTE | 2021-07-17 02:13 | IPNPDOC ---
Text Note Date of Service The patient was seen on 07/17/21. NOTE I was called to evaluate patient for possible seizure activity when patient p resented. In brief, Summer is a 35yo at 40w2d presenting to L&D for contractions and loss of fluid. states patient started brittany around 8pm and eventually water broke, clear, just before they came in. She has no prior diagnosis of pre-eclampsia, but on presentation she was noted to have mild range bp's, clonus, and seemed to have some abnormal mentation with some repetitive head nodding motions. These abnormal motions were in conjunction with contractions, so it was difficult to discern if this was how patient was coping with contractions vs had a pathologic etiology. However, voiced his concern stating that patient had delivered 4 babies previously and had "never acted like this before". At that point, EB Santana called me in to evaluate and patient was given 6g loading dose of IV MgSO4 and 10mg of valium. I arrived soon after, and patient seemed to be mostly sleepy (likely from the valium) with no further clonus. She did have the head nodding motion with contractions, but seemed to answer my questions appropriately. SCE was 2/80/-1. She is grossly ruptured, clear. FHRT Cat I-II for min-mod snehal, no decels, +accels. Her hx is significant for: 8 total pregnancies, 4 live births. Hx of hemorrhage x3 (had ICU admission for one of the hemorrhages). Proven to [id number]. Had a 2nd trimester miscarriage. Had cerclage placed around 22 weeks this for cervical shortening with funneling- was removed without issue at 37wk. She also has A1GDM that did not appear to be well controlled. GBS positive. EFW by Sushant's 9+ lb. BPs normotensive to mild range, satting well in RA Labs were drawn and show hemoconcentration with H/H 15.8/46.6, plt 155. serum creatinine 0.8, normal LFTs. urine prot:creat 0.6. Patient has now received an epidural and is comfortable, sleeping off and on. The abnormal motions have ceased. Given all of the findings, patient certainly has pre-eclampsia withOUT severe features based on mild range bp's and proteinuria. However, it does NOT seem like she has had an eclamptic seizure. Rather, after going in and evaluating patient several times over the course of a few hours, I believe that what was felt to be abnormal mentation/abnormal motions, was just behavioral- patient's way of coping with her ctx. At this point, will discontinue IV MgSO4 (given her high baseline risk for hemorrhage and no severe range bp's). Will continue to evaluate patient and if she is not having good cervical change, will initiate IV pitocin. Anticipate she will progress in labor. Will closely monitor. Safe to proceed. Liliane Garay MD VS,Kadie, I+O VSKadie, I+O Laboratory Tests 07/16/21 22:13 Liliane Garay MD Jul 17, 2021 02:05
[2021-07-17] MEDS ORDERED: PENICILLIN G POTASSIUM IV 2.5 MU in IV 1 EA IV SCH (04:00)
--- NOTE | 2021-07-17 06:09 | HPE ---
HISTORY AND PHYSICAL DATE OF ADMISSION: 07/16/2021 HISTORY OF PRESENT ILLNESS: Summer is a 35-year-old 8 para 4-0-3-4 at 40 and 3/7th weeks gestation, EDC of 07/14/21 by last period and confirmed by second trimester ultrasound. She presents to Labor and Delivery today from home reporting that her water broke at approximately 2100 and she immediately started brittany very uncomfortably. She does report continued leakage, the fetus has been active. Denies bleeding. Her care was initiated at [facility] in the first trimester. The course was complicated by advanced maternal age and gestational diabetes well-controlled. She presents with seizure like activity during contractions. She was observed for several minutes. Her who is an [employer] Technician reports that this is not behavior she has ever demonstrated before. She denies current headache, visual disturbances, epigastric pain, or right upper quadrant discomfort. She is thrashing, rolling her eyes, her tongue is dangling from her mouth. She does respond to commands and answers questions appropriately when addressed. She has clonus. OBSTETRIC HISTORY: #1 induced in 2003; #2 spontaneous vaginal delivery live in November 2006 female. She did have a complication of hemorrhage; #3 live in June 2008, 6 pounds, 11 ounce female, vaginal delivery complicated by a hemorrhage; #4 live May 2010 female, vaginal delivery complicated by a hemorrhage, #5 elective termination of , #6 live December 01, 2014, 9 pound, 12 ounce female, vaginal delivery, the baby did go to the Intensive Care Unit for sepsis; #7 second trimester miscarriage in 2018. MEDICAL PROBLEMS: None chronic. PAST SURGICAL HISTORY: Vaginal cyst removal. SOCIAL HISTORY: The patient is , her is at bedside. She is a nonsmoker. She denies alcohol use and drug use. No history of sexually transmitted infections. She denies a history of abuse, physical, sexual and emotional. OBJECTIVE: Temperature 97.6, BP is 150/85, 149/70. The heart rate is 135 with moderate variability, positive accelerations, positive early decelerations, contractions appear to be every 2-3 minutes, they do palpate moderate. Sterile vaginal exam: She is 2 cm dilated, 50% effaced, -1 station, she is grossly ruptured. No show with the exam. I did perform labs due to the elevated blood pressure. Her hemoglobin was 15.8, hematocrit 46.6, platelets are 155,000. Preeclamptic labs with an AST of 34, ALT of 22, alkaline phosphatase of 178, LDH is 332. Her uric acid is 4.1. Creatinine is 0.81. Potassium is 4.5, sodium is 138. Her spot urine is 0.60. ASSESSMENT: Intrauterine at 40 and 3/7th weeks, heart rate is category 1, labor, seizure like activity, preeclampsia, concerning for eclamptic seizure. Likely psuedoseizures PLAN: Admit the patient to Labor and Delivery, IV access x2, Dr. Garay aware of patient's status and was en route to the hospital, at this time a decision was made for a 6 gram magnesium sulfate loading dose and 10 mg IV as the patient appeared to be having eclamptic seizure, IV fluid bolus.We got the patient comfortable with her epidural and as time went on the patient appeared to have this activity only during contractions and the thought process was that once she was comfortable with the epidural this psuedoseizure activity would cease and it did. May consider Pitocin if necessary to augment her labor. I do anticipate a vaginal delivery. The risks, benefits and alternatives reviewed with the patient and her . She was verbally consented for emergency surgery and blood products. ARNOLDO
[2021-07-17] MEDS ORDERED: MEASLES,MUMPS,RUBELLA VACCINE INJ (MMR-II) (90707) SC SCH (07:00)
[2021-07-17] MEDS ORDERED: DOCUSATE SODIUM 100MG CAPSULE PO PRN (07:00)
[2021-07-17] MEDS ORDERED: DIBUCAINE 1% OINTMENT 30GM TOP PRN (07:00)
[2021-07-17] MEDS ORDERED: RHOGAM 300 MCG (1500 IU) INJ (J2790) IM SCH (07:00)
[2021-07-17] MEDS ORDERED: ACETAMINOPHEN TAB 650MG DOSE (2X325MG) PO PRN (07:00)
[2021-07-17] MEDS ORDERED: IBUPROFEN 600MG TAB PO PRN (07:00)
[2021-07-17] MEDS ORDERED: OXYTOCIN DRIP 30 UNITS in IV 1 EA IV SCH (07:00)
--- NOTE | 2021-07-17 07:28 | DN ---
DELIVERY NOTE DATE OF DELIVERY: 07/17/2021 TIME OF : GENDER: APGARS: LACERATIONS: ANESTHESIA: ESTIMATED BLOOD LOSS: COUNTS: DESCRIPTION OF DELIVERY: Summer is a 35-year-old 8 para 5-0-3-5 now who was admitted to labor and delivery in active labor and pseudoseizures. She did receive Valium 2 mg IV and a 6-gram loading dose of magnesium sulfate. Once she was comfortable with her epidural, the decision was made to discontinue the magnesium as it was determined that she had pseudoseizures, not truly an eclamptic seizure. She reached completed dilation at 0554. She pushed to a normal spontaneous vaginal delivery of a live male in OA position with restitution to ROT position at 0611. There was a nuchal cord times two loose, reduced manually at the time of delivery. The shoulders delivered spontaneously and the corpus immediately followed. The male's mouth and nares was bulb suctioned. He was placed on the maternal abdomen crying and active. The cord was clamped times two once pulsations ceased and cut by the father of the baby under my direction. Spontaneous expulsion of an intact placenta with three-vessel cord by Ortiz mechanism was at 0623. Uterine hemostasis achieved with IV Pitocin rapid infusion, IM Pitocin 10 units and uterine fundal massage. Estimated blood loss was 300 mL. Perineum and vagina were inspected and noted to be intact. [place] male weighed 8 pounds 12 ounces (3970 grams). Apgars were 8 and 9. The mom is going to attempt to breast feed. The family has named their son Star. At the close of delivery, lap counts were correct and verified as well as instrument counts.
[2021-07-17] MEDS: PRENATAL VITAMINS CHEWABLE TABLET PO SCH (09:00)
[2021-07-17] MEDS: ACETAMINOPHEN 500 MG TAB PO PRN ×2 (10:21→21:25)
[2021-07-17] MEDS ORDERED: PROHANCE 279.3MG/ML 5ML VIAL As Ordered ONE (16:21)
[2021-07-17] MEDS ORDERED: PROHANCE 279.3MG/ML 15ML VIAL As Ordered ONE (16:22)
--- NOTE | 2021-07-17 17:00 | REPVR ---
PROCEDURE INFORMATION: Exam: MR Head Without and With Contrast Exam date and time: 07/17/2021 4:37 PM Age: 35 years old Clinical indication: Pain; Speech disturbance and walking, difficulty and weakness, extremity; Bilateral; Slurred speech; Headache not specified; Patient HX: PT states question of epilepsy due to HX of seizure 2010 . ; Additional info: Headache, slurred speech, weekness. 6hrs TECHNIQUE: Imaging protocol: MR of the head without and with intravenous contrast. Contrast material: PROHANCE; Contrast volume: 20 ml; Contrast route: INTRAVENOUS (IV); COMPARISON: CT Head without contrast 09/29/2019 4:54 PM FINDINGS: Limitations: There is motion artifact on several sequences. Brain: There is no evidence of infarct, tomlinson-white matter differentiation is preserved. There is no hemorrhage or extra-axial collection. There is no mass. DWI demonstrates no evidence of acute infarct. There is no abnormal enhancement. There is no evidence of demyelinating disease. There are no abnormal flow voids. Cerebral ventricles: There is no hydrocephalus. Bones/joints: Unremarkable. Paranasal sinuses: Normal as visualized. No acute sinusitis. Mastoid air cells: Normal as visualized. No mastoid effusion. Orbital cavity: Unremarkable. Soft tissues: Unremarkable. IMPRESSION: No intracranial lesion or injury Electronically signed by: John Wilcox On 07/17/2021 17:00:10 PM
[2021-07-17] MEDS: IBUPROFEN 800 MG TAB PO PRN (17:19)
[2021-07-18] MEDS: IBUPROFEN 800 MG TAB PO PRN ×2 (01:23→20:10)
[2021-07-18 02:00] VITALS: BP 134/76
[2021-07-18 06:00] VITALS: BP 113/57
--- NOTE | 2021-07-18 07:26 | CR ---
CONSULTATION DATE: 07/17/2021 REFERRING PHYSICIAN: ARELIS KAISER CNM REASON FOR CONSULTATION: Stuttering speech and seizure-like spells. HISTORY OF PRESENT ILLNESS: Summer Jaquez is a 35-year-old woman who was admitted to [facility] for her delivery and labor. According to the patient and her who was present in the room, they came around 8:30 p.m. on July 16, 2021 after her water broke. She started having seizure-like episodes with stuttering speech and slow to respond. According to the patient's who saw these episodes, the first episode lasted for 45 minutes during which she would shake, stop and then start shaking again with intervals in between. She would shake her head side to side and arms shaking non-rhythmically from the description that I can understand. She also had stuttering speech and would lose awareness of her surroundings. She was thrashing, eyes rolling and tongue dangling from her mouth. She responded to commands and answered questions when addressed. These episodes stopped after she was given epidural anesthesia. She had shorter and mildly episodes this morning after delivery as well. They have not happened in the last 8 hours. According to the patient's she passed out when she was in 2009. When she was in 2016 she had severe headache and she lost her vision for a few minutes. Her MRI scans of brain and EEG were unremarkable in [id number]. She currently denies any headaches, neck pain, back pain, dysphagia, dysarthria, diplopia, and urinary incontinence. PAST MEDICAL HISTORY: Gestational diabetes, vaginal cyst removal. PAST SOCIAL HISTORY: She is and lives with her . She denies smoking, alcohol or illicit drugs. FAMILY HISTORY: There is no family history of epilepsy. REVIEW OF SYSTEMS: All systems were reviewed and found to be noncontributory except as mentioned in the history of present illness. PHYSICAL EXAMINATION: Temperature 98.5, pulse 102, respiratory rate 18, blood pressure 126/86, 100% saturation on room air. Heart: Regular rate and rhythm. Lungs are clear to auscultation. Abdomen is soft, nontender and nondistended. No pedal edema. No musculoskeletal abnormalities. No rash. No signs of meningeal irritation. Patient is awake, alert and oriented to person, place and time. Normal speech, comprehension and repetition. Extraocular muscles are intact. No facial weakness. Tongue and uvula are midline. There is 5/5 strength in all four extremities. Deep tendon reflexes are 2+ throughout. Normal sensation. There is no dysmetria, nystagmus or ataxia. DIAGNOSTIC STUDIES: MRI scan of the brain was reviewed and is within normal limits. CBC showed a hemoglobin of 15.8, LDH was 322 with normal metabolic profile. Her EEG was normal. ASSESSMENT: 1. Episodic stuttering speech and shaking spells with unremarkable workup in the past and today. 2. Suspected nonepileptic spells which could have been triggered by pain and stress of labor and delivery. PLAN: 1. Use hydroxyzine 12.5-25 mg p.o. b.i.d. p.r.n. if she has any further episodes. 2. Video EEG monitoring or ambulatory EEG should be considered on an outpatient basis if these episodes persist. Her workup was unremarkable in [id number] and today as well.
--- NOTE | 2021-07-18 08:03 | IPNPDOC ---
Text Note Date of Service The patient was seen on 07/18/21. NOTE PP #1 Reports being very tired, otherwise no complaints. VSS, afebrile, normotensive Responsive to questions Fundus firm, NT, down 1 FB Lochia rubra light without odor Perineum intact PP #1 Routine care. Anticipate D/C in am VS,Fishbone, I+O VS, Fishbone, I+O Vital Signs Date Time Temp Pulse Resp B/P (MAP) Pulse Ox O2 Delivery O2 Flow Rate FiO2 07/18/21 06:00 98.8 70 16 113/57 (75) 97 Room Air I&O- Last 24 Hours up to 6 AM 07/18/21 05:59 Intake Total 620 ml Output Total 667 ml Balance -47 ml Afsaneh Luna CNM Jul 18, 2021 08:03
[2021-07-18 10:00] VITALS: BP 148/87
[2021-07-18] MEDS: PRENATAL VITAMINS CHEWABLE TABLET PO SCH (11:11)
--- NOTE | 2021-07-18 11:18 | EEG ---
ELECTROENCEPHALOGRAM DATE: 07/17/2021 REFERRING PHYSICIAN: ARELIS KAISER CNM DIAGNOSIS: Slurred speech, shaking spells. EEG#: [id number] HISTORY: The patient is a 35-year-old woman who delivered a healthy boy this morning. She started having shaking spells during labor with stuttering speech and loss of awareness. This EEG was done to rule out epileptic potential. She is currently on penicillin, Fentanyl, oxytocin, etc. TECHNICAL DESCRIPTION: This digital electroencephalogram (EEG) was recorded by 21 scalp, ear, and two electrocardiogram (EKG) electrodes and was reviewed in bipolar and referential montages following reformatting in 10-20 international electrode placement system. INTERPRETATION: The patient was noted to be in awake and drowsy states during this EEG. Resting and awake background rhythm consisted of well-formed posterior dominant rhythm with anterior/posterior gradient comprising alpha 11 Hz alpha activity measuring 15-40 microvolts in amplitude which was symmetric and reactive to eye opening. Attenuation of posterior dominant rhythm was seen during transition to drowsiness. Stage I and II sleep were reviewed and were symmetric bilaterally. Hyperventilation was not performed. Photic stimulation remained unremarkable. EKG revealed normal sinus rhythm although it was affected by artifact. No focal, lateralizing, or epileptiform abnormalities were seen. No relevant clinical activity was noted. CONCLUSION: This EEG in awake, drowsy states, stage I and II sleep is within normal limits.
[2021-07-18 14:00] VITALS: BP 136/82
[2021-07-18] MEDS: ACETAMINOPHEN 500 MG TAB PO PRN (15:19)
[2021-07-18 18:00] VITALS: BP 143/74
--- NOTE | 2021-07-18 18:43 | IPN ---
PROGRESS NOTE DATE: 07/18/2021 This patient requested circumcision of her male . After discussing risks and benefits of circumcision, the medical, the nonmedical indications, the penile block and aftercare, expressed understanding of penile block aftercare and bleeding, signed the consent form. All questions were answered. Twenty minute discussion. We await clearance by the oil pit attendant. cc: Kanika Rowan OB
[2021-07-18 22:19] VITALS: BP 120/58
[2021-07-19 02:28] VITALS: BP 140/84
[2021-07-19 07:00] VITALS: BP 123/71
[2021-07-19] MEDS: PRENATAL VITAMINS CHEWABLE TABLET PO SCH (08:43)
[2021-07-19 10:00] VITALS: BP 133/68
[2021-07-19] MEDS: ACETAMINOPHEN 500 MG TAB PO PRN (12:02)
[2021-07-19 14:00] VITALS: BP 119/57
[2021-07-19] MEDS ORDERED: BOOSTRIX/ADACEL VACCINE (DIPHTH/PERTUSS/ACELL/TETANUS) 0.5ML SYR IM ONE (14:30)
== END 2021-07-19 17:35 | disposition home or self-care (01) | DRG 806 ==
LOC: M LDI 22:09 → M OBS 07-17 17:00
PROVIDERS: ADMIT Advanced Practice Midwife; ATTEND Advanced Practice Midwife
PROC: 10E0XZZ Delivery of Products of Conception, External Approach (ICD-10-PCS; principal; 2021-07-17)
DX: O48.0 Post-term pregnancy (principal); Z37.0 Single live birth; G40.89 Other seizures; O99.354 Diseases of the nervous system complicating childbirth; Z3A.40 40 weeks gestation of pregnancy; O14.04 Mild to moderate pre-eclampsia, complicating childbirth; O99.824 Streptococcus B carrier state complicating childbirth; O69.81X0 Labor and delivery complicated by cord around neck, without compression, not applicable or unspecified; O24.420 Gestational diabetes mellitus in childbirth, diet controlled